=== PATIENT | female | born 1945 | race Caucasian/White ===

== ENCOUNTER → 2021-10-22 | Outpatient (CLI) | payer MEDICARE, OTHER ==
[~2021-10-22] VITALS: Ht 160 cm; Wt 79.0 kg
[~2021-10-22] MED LIST: APIX5TAB PO; ATOR20TA86 PO; CALC-1038 PO; EXEN2AUT SQ; FAMO20 PO; FOLI400T4 PO; FURO20 PO; LACT1CAP80 PO; LEVO75 PO; LISI-894 PO; METO25 PO; MULT-1259 PO; POTA-206 PO; SITA100 PO
[2021-10-22 11:53] VITALS: BP_SYST 127
== END | disposition home or self-care (01) ==
LOC: SRCNTR 10:37
PROVIDERS: ATTEND Internal Medicine Critical Care Medicine
DX: I10 Essential (primary) hypertension (principal); G47.33 Obstructive sleep apnea (adult) (pediatric); C85.90 Non-Hodgkin lymphoma, unspecified, unspecified site; E66.9 Obesity, unspecified; G47.00 Insomnia, unspecified; N13.2 Hydronephrosis with renal and ureteral calculous obstruction; Z98.84 Bariatric surgery status
CPT/HCPCS: G0463

== ENCOUNTER → 2022-01-19 | Outpatient (CLI) | payer MEDICARE, OTHER ==
[~2022-01-19] VITALS: Ht 157.5 cm; Wt 81.0 kg
[2022-01-19 11:56] VITALS: BP 123/69
== END | disposition home or self-care (01) ==
LOC: SRCNTR 10:45
PROVIDERS: ATTEND Internal Medicine Critical Care Medicine
DX: G47.33 Obstructive sleep apnea (adult) (pediatric) (principal); E11.9 Type 2 diabetes mellitus without complications; I10 Essential (primary) hypertension; R53.83 Other fatigue; N13.30 Unspecified hydronephrosis
CPT/HCPCS: G0463

== ENCOUNTER → 2022-03-25 | Outpatient (CLI) | payer MEDICARE, OTHER ==
[~2022-03-25] VITALS: Ht 160 cm; Wt 83.4 kg
[2022-03-25 10:26] VITALS: BP 127/54
== END | disposition home or self-care (01) ==
LOC: SRCNTR 10:17
PROVIDERS: ATTEND Internal Medicine Critical Care Medicine
DX: I10 Essential (primary) hypertension (principal); E11.9 Type 2 diabetes mellitus without complications; G47.33 Obstructive sleep apnea (adult) (pediatric); C85.90 Non-Hodgkin lymphoma, unspecified, unspecified site; E66.01 Morbid (severe) obesity due to excess calories; N13.30 Unspecified hydronephrosis; G47.00 Insomnia, unspecified
CPT/HCPCS: G0463